=== PATIENT | female | born 1985 | race Caucasian/White ===

== ENCOUNTER 2024-05-31 17:21 | Emergency (ER) | payer OTHER, SELFPAY ==
[2024-05-31 17:29] VITALS: BP 116/72; PULSE 71; RESP 16; TEMP 36.8; O2SAT 100; BMI 21.2
--- NOTE | 2024-05-31 18:53 | ED_ITS ---
HPI - Neck Pain/Injury General: Chief Complaint: Neck Pain/Injury Stated Complaint: wasp sting, stiff neck w/ pain Time Seen by Provider: 05/31/24 18:53 History of Present Illness: 39-year-old female comes in today with c omplaints of neck pain. Patient reports that she got stung by a wasp and she was jerking away from the loss and felt a sudden sharp pain in her low part of her neck. Patient appears nontoxic. Patient appears in moderate pain and discomfort. Patient reports a history of bulging disc in the cervical spine and prior muscle strain. Related Data Previous Rx's Medication Instructions Recorded baclofen 10 mg tablet 10 mg PO TID PRN muscle spasm #15 05/31/24 tabs naproxen 500 mg tablet 500 mg PO BID pain #20 tabs 05/31/24 Allergies Allergy/AdvReac Type Severity Reaction Status Date / Time amoxicillin Allergy ALGY-Hives Verified 05/31/24 17:33 latex Allergy ALGY-Rash Verified 05/31/24 17:33 Penicillins Allergy ALGY-Rash Verified 05/31/24 17:33 Review of Systems General: Reports: 10 or more systems reviewed and unremarkable except in HPI and below Musc: Reports: neck pain Physical Exam Const: COMMON NORMALS: alert HENMT: COMMON NORMALS: normocephalic HEAD & SCALP: normocephalic Neck/C-Spine: COMMON NORMALS: full ROM CERVICAL SPINE: Yes Cervical spine tenderness and Yes Paracervical muscle tenderness Resp: COMMON NORMALS: normal respiratory effort Cardio: COMMON NORMALS: regular rate RATE: regular rate Back/Pelvis: COMMON NORMALS: thoracic and lumbar spine normal to inspection Extremity: COMMON NORMALS: normal to inspection Neuro: SENSORIUM/ORIENTATION: Yes alert Skin: COMMON NORMALS: turgor normal GENERAL SKIN EXAM: turgor normal Course Vital Signs: Vital signs: Vital Signs Temperature 98.2 F 05/31/24 17:29 Pulse Rate 71 05/31/24 17:29 Respiratory Rate 16 05/31/24 17:29 Blood Pressure 116/72 05/31/24 17:29 Pulse Oximetry 100 05/31/24 17:29 Oxygen Delivery Me thod Room Air 05/31/24 17:29 MDM - Neck Pain/Injury Medical Decision Making 39-year-old female comes in today for complaints of neck pain and injury. Patient reports yanked away from a wasp when it stung her and since then she had increased neck discomfort. Patient believes she strained her neck. Patient has a history of of a bulging disc and believes that is aggravated it. Patient appears nontoxic. Respirations are even lungs are clear to auscultation. Skin is warm and dry. Vital signs are normal. Differential diagnosis includes but not limited to intervertebral disc disease, facet arthritis, muscle strain. X- ray of the cervical spine was unremarkable except for some disc degeneration between C6 and C7. Recommended treatment for cervical muscle strain. Baclofen and naproxen was ordered. Patient should follow-up with primary care for further instructions and evaluation. XR interpretation done by ED provider, pending radiology final review Discharge Plan Discharge Patient Disposition: Home Clinical Impression: Disc disorder of cervical region Strain of neck muscle Qualifiers: Encounter type: initial encounter Qualified Code(s): S16.1XXA - Strain of muscle, fascia and tendon at neck level, initial encounter Condition: Stable Prescriptions: New naproxen 500 mg tablet 500 mg PO BID Qty: 20 0RF baclofen 10 mg tablet 10 mg PO TID PRN (Reason: muscle spasm) Qty: 15 0RF Discharge Orders: Discharge ED (Routine); Ordered 05/31/24 Ordered By: Zeb Kirkpatrick Discharge Diet: Usual diet Discharge Activity: Increase activity as tolerated Patient Instructions: Cervical Strain (ED) Activity Restrictions/Additional Instructions: Activity as tolerated. Gentle stretching and range of motion exercises. Use ice and heat to the area to help with pain. Take naproxen 500 mg twice a day for pain and inflammation. Use baclofen 10 mg 3 times a day for muscle spasms and pain. Follow-up with primary care in 2 to 3 days for recheck. Return to ED for new concerns. Coding Level of Care Code ED [employer] for [facility] Concepcion
--- NOTE | 2024-05-31 19:01 | XRR_ITS ---
PROCEDURE INFORMATION: Exam: XR Cervical Spine Exam date and time: 05/31/2024 7:09 PM Age: 39 years old Clinical indication: Injury or trauma; Other: Wasp sting/bumped neck; Blunt trauma; Additional info: Neck injury TECHNIQUE: Imaging protocol: Radiologic exam of the cervical spine. Views: 2 or 3 views. COMPARISON: No relevant prior studies available. FINDINGS: Bones/joints: No acute fractures or subluxations. Normal sagittal alignment. The vertebral body heights are preserved. The intervertebral disc spaces are preserved. Posterior elements are intact. Small endplate osteophytes. Soft tissues: No acute soft tissue findings. No radiopaque foreign bodies. Lungs: The lung apices are clear. XR/XR cervical spine 3V* [id number] IMPRESSION: No acute osseous findings. No acute soft tissue findings. No radiopaque foreign bodies.
[2024-05-31] MEDS: ketorolac 30 mg/mL INJ IM (19:05)
[2024-05-31] MEDS: orphenadrine 30 mg/mL Inj 2 mL 60 MG IM (19:07)
[2024-05-31 19:44] VITALS: BP 114/75; PULSE 64; O2SAT 97
== END 2024-05-31 19:45 | disposition home or self-care (01) ==
PROVIDERS: Emergency Provider Nurse Practitioner Family
DX: S16.1XXA Strain of muscle, fascia and tendon at neck level, initial encounter (principal); M50.323 Other cervical disc degeneration at C6-C7 level; X50.9XXA Other and unspecified overexertion or strenuous movements or postures, initial encounter
CPT/HCPCS: 72040; 96372; 99284; J1885; J2360

== ENCOUNTER 2024-06-02 18:04 | Emergency (ER) | payer OTHER, SELFPAY ==
[2024-06-02 18:08] VITALS: BP 114/70; PULSE 68; RESP 17; TEMP 36.9; O2SAT 100; BMI 21.2
--- NOTE | 2024-06-02 18:13 | XRR_ITS ---
PROCEDURE INFORMATION: Exam: XR Left Ankle Exam date and time: 06/02/2024 6:19 PM Age: 39 years old Clinical indication: Pain; Left; Patient HX: PT twisted her ankle a few hours ago. Ambulatory with a limp, distal movement and circulation intact. ; Additional info: Ankle pain TECHNIQUE: Imaging protocol: Radiologic exam of the left ankle. Views: 3 or more views. COMPARISON: No relevant prior studies available. FINDINGS: Bones/joints: No acute fractures or subluxations. Soft tissues: Normal. XR/XR ankle LT min 3V* [id number] IMPRESSION: No acute fractures or subluxations.
--- NOTE | 2024-06-02 18:38 | ED_ITS ---
HPI - Extremity Problem General: Chief complaint: Extremity Injury, Lower Stated complaint: Twisted left ankle Time Seen by Provider: 06/02/24 18:13 History of Present Illness: 39-year-old female who was jumping over a ditch and twisted her left ankle. Chest pain swelling in the lateral side of the ankle. Hurts to walk. She said she heard a popping noise. She has been icing it for about 3 hours now and the pain has persisted so she came to the emergency room for x-rays. Fei rovascularly intact. No other injuries. Related Data Home Medications Medication Instructions Recorded Confirmed albuterol sulfate 90 mcg/actuation 1 puff inhalation QID 06/01/24 06/01/24 aerosol inhaler (Ventolin HFA) aripiprazole 5 mg tablet (Abilify) 5 mg PO DAILY 06/01/24 06/01/24 cetirizine 10 mg tablet 10 mg PO DAILY PRN 06/01/24 06/01/24 clonidine HCl 0.1 mg tablet 0.1 mg PO BID 06/01/24 06/01/24 doxepin 10 mg capsule 10 mg PO DAILY 06/01/24 06/01/24 fluticasone propionate 50 1 spray intranasal DAILY 06/01/24 06/01/24 mcg/actuation nasal spray,suspension (Allergy Relief (fluticasone)) gabapentin 100 mg capsule 100 mg PO TID 06/01/24 06/01/24 hydroxyzine HCl 50 mg tablet 50 mg PO TID 06/01/24 06/01/24 sertraline 50 mg tablet 50 mg PO DAILY 06/01/24 06/01/24 Previous Rx's Medication Instructions Recorded baclofen 10 mg tablet 10 mg PO TID PRN muscle spasm #15 05/31/24 tabs naproxen 500 mg tablet 500 mg PO BID pain #20 tabs 05/31/24 diclofenac sodium 50 mg 50 mg PO BID PRN pain #14 tabs 06/02/24 tablet,delayed release Allergies Allergy/AdvReac Type Severity Reaction Status Date / Time amoxicillin Allergy ALGY-Hives Verified 06/02/24 18:10 latex Allergy ALGY-Rash Verified 06/02/24 18:10 Penicillins Allergy ALGY-Rash Verified 06/02/24 18:10 Review of Systems Narrative: Constitutional symptoms: Negative except as documented in HPI. Skin symptoms: Negative except as documented in HPI. Eye symptoms: Negative except as documented in HPI. ENMT symptoms: Negative except as documented in HPI. Respiratory symptoms: Negative except as documented in HPI. Cardiovascular symptoms: Negative except as documented in HPI. Gastrointestinal symptoms: Negative except as documented in HPI. Genitourinary symptoms: Negative except as documented in HPI. Musculoskeletal symptoms: Negative except as documented in HPI. Neurologic symptoms: Negative except as documented in HPI. Psychiatric symptoms: Negative except as documented in HPI. Endocrine symptoms: Negative except as documented in HPI. Physical Exam Narrative: EXAM NARRATIVE: General: Alert, no acute distress. Skin: warm and dry Head: Normocephalic Neck: Trachea midline Eye: Extraocular movements are intact. Ears, nose, mouth and throat: Oral mucosa moist Respiratory: Respirations are non-labored Musculoskeletal: Normal ROM Neurological: Alert and oriented, No focal neurological deficit observed. Psychiatric: Cooperative, appropriate mood & affect. Course Vital Signs: Vital signs: Vital Signs Temperature 98.4 F 06/02/24 18:08 Pulse Rate 68 06/02/24 18:08 Respiratory Rate 17 06/02/24 18:08 Blood Pressure 114/70 06/02/24 18:08 Pulse Oximetry 100 06/02/24 18:08 Oxygen Delivery Me thod Room Air 06/02/24 18:08 MDM - Extremity (Nontraumatic) Medical Decision Making X-ray of the left ankle: Some soft tissue swelling but no obvious fractures or dislocations. This was reviewed and interpreted by myself the emergency room physician. I also reviewed the radiology report. Assessment and plan: Ankle sprain ?[place] in the emergency room. - Discharged home - Discussed plan with patient. Answered any questions. - Evaluation and treatment of this problem were appropriate in the emergency setting. Lab Data Radiology Impressions Ankle X-Ray 06/02/24 18:13 IMPRESSION: No acute fractures or subluxations. All radiology interpretation(s) finalized by discharge Discharge Plan Discharge Patient Disposition: Home Clinical Impression: Ankle sprain and strain Condition: Stable Prescriptions: New diclofenac sodium 50 mg tablet,delayed release (DR/EC) 50 mg PO BID PRN (Reason: pain) Qty: 14 0RF No Action sertraline 50 mg tablet 50 mg PO DAILY albuterol sulfate [Ventolin HFA] 90 mcg/actuation HFA aerosol inhaler 1 puff inhalation QID aripiprazole [Abilify] 5 mg tablet 5 mg PO DAILY cetirizine 10 mg tablet 10 mg PO DAILY PRN clonidine HCl 0.1 mg tablet 0.1 mg PO BID doxepin 10 mg capsule 10 mg PO DAILY fluticasone propionate [Allergy Relief (fluticasone)] 50 mcg/actuation spray,suspension 1 spray intranasal DAILY Rx Instructions: administer into each nostril gabapentin 100 mg capsule 100 mg PO TID hydroxyzine HCl 50 mg tablet 50 mg PO TID naproxen 500 mg tablet 500 mg PO BID Qty: 20 0RF baclofen 10 mg tablet 10 mg PO TID PRN (Reason: muscle spasm) Qty: 15 0RF Discharge Orders: Discharge ED (Routine); Ordered 06/02/24 Ordered By: Reyna Jacob Discharge Diet: Usual diet Discharge Activity: Resume usual activity Patient Instructions: P.R.I.C.E. Treatment (ED) Activity Restrictions/Additional Instructions: Thank you for choosing [facility] for your healthcare needs today. Please realize this is an emergency room and that we are providing you with a medical screening exam and this may not be complete and all inclusive of all the testing and or work up that you may need to determine your ailment or severity of your illness. You have been screened and evaluated and felt safe for discharge. Health conditions do change or evolve sometimes and as such it is important that you follow up with your Primary Doctor to be re checked, 3-5 days is a general good time frame for follow up. You are always welcome to return to the ED for re assessment if your symptoms are worsening or you have new concerns Coding Level of Care Code ED [facility] [employer] [facility] for [facility] Conce[facility]
[2024-06-02] MEDS: HYDROcodone-acetaminophen 5-325 mg Tablet 1 TAB PO (19:07)
[2024-06-02 19:11] VITALS: BP 114/75; PULSE 64; RESP 16; O2SAT 99
== END 2024-06-02 19:11 | disposition home or self-care (01) ==
PROVIDERS: Emergency Provider Emergency Medicine
DX: S93.402A Sprain of unspecified ligament of left ankle, initial encounter (principal); S96.912A Strain of unspecified muscle and tendon at ankle and foot level, left foot, initial encounter; X50.1XXA Overexertion from prolonged static or awkward postures, initial encounter
CPT/HCPCS: 73610; 99283